=== PATIENT | female | born 1970 | race Caucasian/White ===

== ENCOUNTER 2017-02-21 17:58 | Emergency (ER) | payer BC ==
[2017-02-21 18:05] VITALS: BP 146/78
--- NOTE | 2017-02-21 18:18 | UC ---
Skin Complaint HPI - HPI Summary HPI Summary: C/O rash x 2 days, started on abdomen and has now spread to the face. - History of Current Complaint Chief Complaint: UCSkin Time Seen by Provider: 02/21/17 18:07 Stated Complaint: RASH ON ABD/FACE Hx Obtained From: Patient Hx Last Menstrual Period: 02/15/17 Onset/Duration: Sudden Onset, Lasting Days - 2, Still Present, Worse Since - today Onset Severity: Mild Current Severity: Moderate Location: Discrete - abdomen and now face Character: Pruritus, Redness Aggravating Factor(s): Showering - Allergy/Home Medications Allergies/Adverse Reactions: Allergies Allergy/AdvReac Type Severity Reaction Status Date / Time No Known Allergies Allergy Verified 02/21/17 18:05 Review of Systems Skin: Rash Gastrointestinal: Diarrhea, Nausea Is Patient Immunocompromised?: No All Other Systems Reviewed And Are Negative: Yes PMH/Surg Hx/FS Hx/Imm Hx Previously Healthy: Yes - Surgical History Surgical History: Yes Surgery Procedure, Year, and Place: ACLS surgery 2014. FOOT SURGERY 2012,- RIGHT BUNION SURGERY- LEFT FOOT CYST REMOVED - Family History Known Family History: Positive: Cardiac Disease, Hypertension Negative: Diabetes - Social History Occupation: Employed Full-time Lives: Alone Alcohol Use: None Substance Use Type: None Smoking Status (MU): Current Every Day Smoker Type: Cigarettes Amount Used/How Often: 1/2 PPD X 28 YEARS Have You Smoked in the Last Year: Yes Cessation Counseling: Patient Advised to Stop Physical Exam Triage Information Reviewed: Yes Appearance: Well-Appearing, No Pain Distress, Well-Nourished Vital Signs: Initial Vital Signs Temp 98.2 F 02/21/17 18:02 Pulse 101 02/21/17 18:02 Resp 20 02/21/17 18:02 BP 146/78 02/21/17 18:02 Pulse Ox 98 02/21/17 18:02 Vital Signs Reviewed: Yes Eyes: Positive: Conjunctiva Clear ENT Exam: Normal Neck exam: Normal Respiratory Exam: Normal Cardiovascular Exam: Normal Musculoskeletal Exam: Normal Neurological Exam: Normal Psychological Exam: Normal Skin: Positive: rashes - maculopapular eruption over the abdomen and back with urticarial rash on the face. Course/Dx - Differential Diagnoses - Skin Complaint Differential Diagnoses: Local Allergic Reaction, Urticaria, Viral Exanthem - Diagnoses Provider Diagnoses: Viral exanthem. Acute urticaria Discharge - Discharge Plan Condition: Stable Disposition: HOME Prescriptions: predniSONE TAB* [Deltasone TAB*] 20 mg PO DAILY #18 tab Patient Education Materials: Viral Exanthem (ED), Urticaria (ED), Prednisone ( By mouth) Additional Instructions: Take cetirizine, generic zyrtec, in the evening and fexofenadine 180, generic charanjit, in the morning. This should not cause sedation.
[2017-02-21] MEDS ORDERED: predniSONE TAB* 20 MG PO ONE (18:26)
== END 2017-02-21 18:37 | disposition home or self-care (01) ==
LOC: UCCORT 17:58
DX: B09 Unspecified viral infection characterized by skin and mucous membrane lesions (principal); L50.9 Urticaria, unspecified; F17.210 Nicotine dependence, cigarettes, uncomplicated
CPT/HCPCS: 99212; G0463; J7512